=== PATIENT | male | born 1995 | race African-American/Black ===

== ENCOUNTER 2019-10-20 21:51 | Emergency (ER) | payer OTHER ==
[~2019-10-20] VITALS: Ht 185 cm; Wt 93.2 kg
[~2019-10-20 21:51] MED LIST: NAPR-915 PO
[2019-10-20] MEDS ORDERED: LACTATED RINGERS 1,000 ML IV ONE (22:07)
[2019-10-20 22:14] LABS: BILIRUBIN,URINE NEGATIVE (NEGATIVE); CLARITY,URINE SL CLOUDY; COLOR,URINE YELLOW; GLUCOSE, URINE (UA) NEGATIVE (NEGATIVE); KETONES,URINE NEGATIVE (NEGATIVE); LEUKOCYTE ESTERASE ,URINE NEGATIVE (NEGATIVE); NITRITE,URINE NEGATIVE (NEGATIVE); PH,URINE 5.5 (5-9); PROTEIN,URINE NEGATIVE (NEGATIVE)
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
[2019-10-20 22:23] LABS: BACTERIA,URINE NEGATIVE /HPF
[2019-10-20 22:24] LABS: AMORPHOUS SEDIMENT,UR FEW AMOR URATES /LPF
[2019-10-20 22:32] LABS: BASOPHILS # (AUTO) 0.1 10^3/uL (0.0-0.1); BASOPHILS % (AUTO) 1 % (0-10); EOSINOPHILS # (AUTO) 0.1 10^3/uL (0.0-0.3); EOSINOPHILS % (AUTO) 1 % (0-10); HEMATOCRIT 43 % (40-54); HEMOGLOBIN 15.4 G/DL (13.3-17.7); LYMPHOCYTES % (AUTO) 19 % (12-44); MEAN CORPUSCULAR HEMOGLOBIN 31 PG (25-34); MEAN CORPUSCULAR HGB CONC 36 G/DL (32-36); MEAN CORPUSCULAR VOLUME 87 FL (80-99); MEAN PLATELET VOLUME 10.2 FL (7.4-10.4); MONOCYTES # (AUTO) 0.9 X 10^3 (0.0-1.0); MONOCYTES % (AUTO) 9 % (0-12); NEUTROPHILS # (AUTO) 7.1 X 10^3 (1.8-7.8); NEUTROPHILS % (AUTO) 70 % (42-75); PLATELET COUNT 236 10^3/uL (130-400); RED CELL DISTRIBUTION WIDTH 12.9 % (10.0-14.5); WHITE BLOOD COUNT 10.1 10^3/uL (4.3-11.0)
[2019-10-20 22:32] LABS: AMPHETAMINE SCREEN, URINE NEGATIVE (NEGATIVE); BARBITURATE SCREEN URINE NEGATIVE (NEGATIVE); BENZODIAZEPINES SCREEN URINE NEGATIVE (NEGATIVE); CANNABINOID SCREEN, URINE NEGATIVE (NEGATIVE); COCAINE SCREEN URINE NEGATIVE (NEGATIVE); METHAMPHETAMINE SCREEN URINE S NEGATIVE (NEGATIVE); OPIATE SCREEN URINE NEGATIVE (NEGATIVE)
[2019-10-20 22:33] LABS: METHADONE STAT NEGATIVE (NEGATIVE); OXYCODONE STAT NEGATIVE (NEGATIVE); PROPOXYPHENE STAT NEGATIVE (NEGATIVE); TRICYCLIC ANTIDEPRESSANTS SCRE NEGATIVE (NEGATIVE)
--- OUTSIDE RECORDS SUMMARY | 2019-10-20 22:33 | XMS REPORT ---
Author Author Juliet Knight Organization [facility] Address [address] [place] [address] Care Team Providers Care Product Support Representative Name Role Phone ORACIO Knight Unavailable PROBLEMS Unknown Problems ALLERGIES No Information ENCOUNTERS Encounter Location Date Diagnosis [facility] [address] [place] [address] Jul, Cellulitis of abdominal wall L03.311 [facility] [address] [id number] [address] [place] [phone] May, [place] [address] [address] [facility] [id number] [address] [place] [phone] Feb, [facility] [address] [id number] [address] [place] [phone] Jun, [facility] [address] [facility] [id number] [address] [place] [phone] Feb, Mild ankle sprain 845.00 and Abscess and cellulitis 682.9 [place] [address] [address] [facility] [id number] [address] [place] [phone] Dec, Routine child health exam V2 0.2 ; MENINGOCOCCAL DX V03.89 ; Dietary counseling and surveillance V65.3 ; Exercise counseling V65.41 and Sports physical V70.3 [facility] [address] [facility] [id number] [address] [place] [phone] Aug, [place] [address] [facility] [id number] [address] [place] [phone] Aug, IMMUNIZATIONS No Known Immunizations SOCIAL HISTORY Never Assessed REASON FOR VISIT PLAN OF CARE VITAL SIGNS Height 71 in 2014-09-15 Weight 184 lbs 2014-09-15 Temperature 98 degrees Fahrenheit 2014-09-15 Heart Rate 72 bpm 2014-09-15 Respiratory Rate 16 2014-09-15 Blood pressure systolic 124 mmHg 2014-09-15 Blood pressure diastolic 76 mmHg 2014-09-15 MEDICATIONS No Known Medications RESULTS No Results PROCEDURES Procedure Date Ordered Result Body Site VISUAL ACUITY SCREEN September 15, 2014 INSTRUCTIONS MEDICATIONS ADMINISTERED No Known Medications MEDICAL (GENERAL) HISTORY Type Description Date Surgical History testicular surg. 2010 Hospitalization History dehydration 1999
--- OUTSIDE RECORDS SUMMARY | 2019-10-20 22:33 | XMS REPORT ---
Author Author [employer]. Organization [facility] Address [address] [address] Care Team Providers Care Emergency Veterinarian Name Role Phone ORACIO MENA Unavailable Unavailable NO, LOCAL PHYSICIAN Unavailable Unavailable VÍCTOR KnightYL Unavailable DECKER, LATISHA Unavailable Unavailable DECKER, LATISHA Unavailable Unavailable DECKER, LATISHA Unavailable Unavailable Allergies The data below is from unstructured sources Substance Reaction Event Type N.K.D.A. Info Not Available Non Drug Allergy No Information Medications The data below is from unstructured sources No Known Medications No Known Medications Problems Problem Normalized Date of Normalized Normalized Provider Fac ility Classification Problem(s) Problem Problem Problem Sta tus Onset/Resoluti Duration on Administrative Dietary Episodic Active ORACIO Communit y /social surveillance [facility] admission (3 and counseling [address] of [facility] sources.) Translations: [place] ([id number]) [ - Dietary counseling and surveillance V65.3, - Exercise counseling V65.41, - Sports physical V70.3] Immunizations Other Episodic Active ORACIO Community and screening specified [facility] for infectious vaccination [address] of [facility] disease (1 Translations: [place] ([address]) source.) [ - MENINGOCOCCAL DX V03.89] Procedures Procedure Normalized Procedure Procedure Result Performer Facility Date 09-15-2014 Screening test visual no information no name (no ph one) [facility] quantitative Center [facility] ([id number]) Immunizations The data below is from unstructured sources No Known Immunizations Results The data below is from unstructured sourcesNo Known Results No known relevant diagnostic tests, laboratory data and/or discharge summary.No known relevant diagnostic tests, laboratory data and/or discharge summary. No Results No Results Vital Signs Vital Sign Value Interpretation Reference Date Time Care Prov ider Facility (Normalized) (Normalized) Range Body 98 [degF] (no code) 97.8 - 99.0 09-15-2014 ORACIO Co mmunity [facility]degF] [facility]520[facility] [address] [facility] ([id number]) Body weight 83.46 kg (no code) kg 09-15-2014 ORACIO Com munity 14:520400 [facility] [address] [facility] ([id number]) Height 180.34 cm (no code) cm 09-15-2014 ORACIO Commu nity 14:520400 [facility] [address] [facility] ([id number]) Interventions No Information Plan of Treatment The data below is from unstructured sources Discharge Date 03/11/15 1:08am Disposition 01 HOME, SELF-CARE Condition at Discharge Stable Instructions/Education Provided Cont usion (ED) Splint Care (ED) Abrasion (ED) Forms Provided Work/School Release F orm Prescriptions See Medication Section Referrals LUPE JOSUE DO - [facility] - Additional Instructions/Education IC E TO AREA AT 20 MINUTE INTERVALS WEAR SPLINT AT ALL TIMES CLEAN WOUNDS TWICE A DAY WITH ANTIBACTERIAL SOAP AND WATER, APPLY FRESH DRESSING TWICE A DAY ELEVATE HAND MUCH POSSIBLE FOLLOW UP WITH DR. JOSUE OR ORTHOPEDIC SURGEON OF CHOICE ON FRIDAY FOR FURTHER CARE All discharge instructions reviewed with patient and/or family. Voiced understanding. Goals No Information Social History No Information Functional Status The data below is from unstructured sourcesNo functional status results. Mental Status No Information Encounters Encounter Normalized Encounter Encounter Diagnosis Care Provi meeta Organization Date Type 02-22-2015 (OUTREACH) Outreach Sprain of ankle, ORACIO zzRAJOT TE (no [facility] Visit unspecified site phone) (no phone) 01-02-2015 (PHYSICAL) Routine or SERGIO Brenda (no [facility] Physical-Sport, Camp, child health check phone) (no phone) School, DOT, etc. 08-13-2018 (PROC-40) Procedure-40 Cellulitis of LATISHA DECKER [facility]) min abdominal wall phone) 02-24-2018 [facility] no information Doctor Migrati on (no [facility] phone) (no phone) 06-25-2017 [facility] no information Doctor Migrati on (no [facility] phone) (no phone) 09-15-2014 [facility] no information ORACIO Briones TE (no [facility] - phone) Doctor (no phone) 09-15-2014 [facility] (no phone) - 09-15-2014 07-30-2019 Patient encounter no information LATISHA DECKER (no [facility] - procedure phone) of [place] (no 07-30-2019 phone) 07-02-2019 Patient encounter no information no name (no phone) no organization name - procedure (no phone) 07-02-2019 06-21-2018 Telephone encounter no information Doctor Migration (no [facility] phone) (no phone) no information Routine infant or no name (no phone) no organ ization name child health check (no phone) Medical Equipment No Information Payers Normalized Payer Value () no information Summary Purpose eClinicalWorks Submission Advance Directives Directive Response Recor ded Date/Time Advance Directives No 12:12am Resuscitation Status Full Code 03/11/15 12:12am Discharge Instructions No hospital discharge instructions. Additional Source Comments This clinical document has been generated using XMP[employer] software that has been certified by the Office of the National Coordinator for Health Information Technology (ONC 15.99.04.3023.Diam.31.00.0.691883) and the National Committee for Radiology Transporter (NCQA, as an eMeasure certified technology). FOR RECORDS PERTAINING TO PATIENTS WHO ARE OR HAVE BEEN ENROLLED IN A CHEMICAL D EPENDENCY/SUBSTANCE ABUSE PROGRAM, SOME INFORMATION MAY BE OMITTED. This clinica l summary was aggregated from multiple sources. Caution should be exercised in using it in the provision of clinical care. This summary normalizes information from multiple sources, and as a consequence, information in this document may ma terially change the coding, format and clinical context of patient data. In anamaria tion, data may be omitted in some cases. CLINICAL DECISIONS SHOULD BE BASED ON T HE PRIMARY CLINICAL RECORDS. [employer]. provides no warranty or guara ntee of the accuracy or completeness of information in this document.The followi ng information is based on time limited clinical information UNRECOGNIZED CONTENT PROVIDED BELOW FOR UNRECOGNIZED SECTION MEDICAL (GENERAL) HISTORY Type Description Date Surgical History testicular surg. 2011 Hospitalization History dehydration 1999
--- OUTSIDE RECORDS SUMMARY | 2019-10-20 22:33 | XMS REPORT ---
Author Author Juliet MENA Organization [employer] Address Unknown Phone Unavailable Care Team Providers Care Career Information Specialist Name Role Phone ORACIO MENA CP Unavailable Allergies, Adverse Reactions, Alerts Substance Reaction Event Type N.K.D.A. Info Not Available Non Drug Allergy Problems Problem Type Condition ICD-9 Code Onset Dates Condition Statu s Assessment Abscess and cellulitis 682.9 Activ e Assessment Mild ankle sprain 845.00 Active Medications Medication Code System Code Instructions Start Date End Date Status Dosage Cephalexin [facility] [address]-95 500 MG Orally Four times a day Se pt 2014Mar 05, 2015 1 capsule Procedures Procedure Coding System Code Date Office Visit, Est Pt., Level 3 CPT-4 21415 S ept 2014 Vital Signs Date/Time: Feb 22, 2015 Temperature 98.4 F BMIPercentile 79.46 % Weight 180 lbs Height 72 in BMI 24.41 Index Blood Pressure Diastolic 71 mmHg Blood Pressure Systolic 121 mmHg Cardiac Monitoring Heart Rate 54 bpm Wt Percentile 87.56 % Ht Percentile 83.76 % Results No Known Results Summary Purpose eClinicalWorks Submission
[2019-10-20 22:51] LABS: ALANINE AMINOTRANSFERASE 35 U/L (0-55); ALBUMIN 4.3 GM/DL (3.2-4.5); ALKALINE PHOSPHATASE 107 U/L (40-136); BILIRUBIN,TOTAL 0.4 MG/DL (0.1-1.0); BUN/CREATININE RATIO 13; CARBON DIOXIDE 22 MMOL/L (21-32); CHLORIDE 101 MMOL/L (98-107); CREATININE SERUM 1.42 MG/DL (0.60-1.30); GFR ESTIMATED > 60; GLUCOSE 116 MG/DL (70-105); POTASSIUM 3.5 MMOL/L (3.6-5.0); SALICYLATE < 5.0 MG/DL (5.0-20.0); SODIUM 140 MMOL/L (135-145); TOTAL PROTEIN 7.6 GM/DL (6.4-8.2)
[2019-10-20 22:59] LABS: ACETAMINOPHEN < 10 UG/ML (10-30)
--- NOTE | 2019-10-20 23:48 | NUR ---
Pt information faxed to Josefina Lim at this time.
--- NOTE | 2019-10-21 00:23 | NUR ---
Pt resting at this time, no needs expressed.
--- NOTE | 2019-10-21 03:20 | NUR ---
[facility]fina Lim called with update that no rooms are available at the moment but possible discharges in the am.
--- NOTE | 2019-10-21 03:48 | NUR ---
[facility] called to accept pt at this time, accepting Dr is Dr Loza.
--- NOTE | 2019-10-21 04:05 | NUR ---
Report called to ROSSI Aguirre at [facility].
[2019-10-21 06:28] VITALS: BP 108/63
== END 2019-10-21 06:31 ==
LOC: EDUNIT# 21:51 → ER 21:52
DX: R45.851 Suicidal ideations (principal)
CPT/HCPCS: 36415; 80053; 80306; 80320; 80329; 81000; 85025; 93005; 93041